=== PATIENT | female | born 1990 | race Caucasian/White ===

== ENCOUNTER 2020-12-29 07:20 | Outpatient (CLI) | payer OTHER ==
[2020-12-29 22:14] LABS: SARS-CoV-2 PCR by NAA Not Detected (NotDetected)
== END 2020-12-29 07:21 | disposition home or self-care (01) ==
LOC: LABBT 07:20
PROVIDERS: ATTEND Obstetrics & Gynecology
DX: Z01.812 Encounter for preprocedural laboratory examination (principal); Z20.822 Contact with and (suspected) exposure to COVID-19
CPT/HCPCS: 87635; U0003; U0005

== ENCOUNTER 2021-01-01 10:15 | Inpatient (IN) | payer OTHER ==
[2021-01-01] MEDS ORDERED: Bicitra 30 ML UDCUP PO PRN (10:49)
[2021-01-01] MEDS ORDERED: CEFAZOLIN 2 GM in Premix Bag 1 BAG IVPB SCH (10:49)
[2021-01-01] MEDS ORDERED: Famotidine/PF 20 mg/2ml Vial SLOW IVP PRN (10:49)
[2021-01-01] MEDS ORDERED: Promethazine HCl 25 MG/ML VIAL IM PRN ×2 (10:49→13:41)
[2021-01-01] MEDS ORDERED: Ondansetron PF 4 MG/2 ML Vial IVP PRN ×2 (10:49→13:41)
[2021-01-01] MEDS ORDERED: hydrALAZINE 20 MG/ML VIAL SLOW IVP PRN ×2 (10:49→15:24)
[2021-01-01 10:51] VITALS: BMI 38.7
[2021-01-01] MEDS: Lactated Ringer's 1,000 ML IV SCH ×3 (11:07→22:28)
[2021-01-01 11:30] LABS: Hemoglobin 11.8 g/dL (12.0-16.0); Mean Corpuscular HGB CONC 33.3 g/dL (32.0-36.0); Mean Corpuscular Hemoglobin 30.9 pg (27.0-31.0); Mean Corpuscular Volume 92.7 fL (78.0-98.0); Mean Platelet Volume 8.3 fL (7.4-10.4); Platelet Count 249 thou/uL (130-400); RBC Distribution Width 12.7 % (11.5-14.5); Red Blood Cell (RBC) Count 3.81 mill/uL (4.20-5.40); White Blood Cell (WBC) Count 10.7 thou/uL (4.8-10.8)
[2021-01-01] MEDS ORDERED: Ketorolac Tromethamine 30 MG/ML VIAL ONE (11:49)
[2021-01-01] MEDS ORDERED: Dexamethasone 4 mg/ml Vial ONE (11:49)
[2021-01-01] MEDS ORDERED: Morphine PF 10 MG/10 ML VIAL ONE (11:49)
[2021-01-01] MEDS ORDERED: Oxytocin 10 UNITS/ML VIAL ONE (11:49)
[2021-01-01] MEDS ORDERED: Ondansetron PF 4 MG/2 ML Vial ONE (11:49)
[2021-01-01] MEDS ORDERED: Phenylephrine 40 MG/NS 250 ML 250 ML ONE (11:49)
[2021-01-01 12:00] LABS: Syphilis Antibody Nonreactive (Nonreactive); Syphilis Antibody Index 0.05 S/CO (<1.00 Non-Reactive)
[2021-01-01 12:01] LABS: HBSAg Index 0.17 S/CO (0-0.99); Hep B Surf Ag Non-Reactive S/CO (NonReactive)
--- NOTE | 2021-01-01 12:04 | PDOC.LDHP ---
Labor and Delivery H&P Chief complaint: scheduled section HPI: Here for scheduled RCS, previous 1CS for suspected macrosomia. Current gestational age (weeks): 39 Due date: 01/06/21 Dating criteria: last menstrual period, first trimester ultrasound Grav: 39 Para: 2 OB History Details: 1 Current complications: none Abnormal US findings: No Current medications: pre-kristine vitamins Previous surgical history: low tranverse CS Allergies/Adverse Reactions: Allergies Allergy/AdvReac Type Severity Reaction Status Date / Time No Known Allergies Allergy Unverified 01/01/21 10:51 Social history: none - Physical Exam Vital signs reviewed and normal: yes General: resting Lungs: CTAB Abdomen: gravid Extremeties: no edema FHT: category 1 - OB Labs Blood type: A RH: positive Antibody Screen: negative HIV: negative RPR: negative HEPSAg: negative 1 hour GCT: negative GBS: negative Urine drug screen: negative Rubella: immune - Assessment L&D Assessment: scheduled repeat section - Plan Plan: admit to L&D, informed consent obtained, anesthesia consult for pain management -: TO OR FOR SCHEDULED RCS.
[2021-01-01] MEDS ORDERED: PHENYLEPHRINE-NS 100 MCG/ML 10 ML SYRINGE ONE (12:53)
--- NOTE | 2021-01-01 13:28 | PDOC.OPDEL ---
OB Operative/Delivery Note Delivery Dr/Surgeon: Jay Assist: Justice Pre-Delivery Diagnosis: scheduled section (RCS) Procedure/Post Delivery Dx: repeat low transverse CS Weeks gestation: 39 Anesthesia: spinal - Findings A Sex: female - Additional Findings/Plan Placenta delivered: spontaneous findings: low transverse hysterotomy without extension Estimated blood loss: 500ml Compilations/Other Findings: persistent breech in female until 38 weeks Post delivery plan: routine recovery
[2021-01-01] MEDS ORDERED: NS w/ Oxytocin 30 units 500 ML ONE (13:38)
[2021-01-01] MEDS ORDERED: diphenhydrAMINE 50 MG/ML VIAL IVP PRN (13:41)
[2021-01-01] MEDS ORDERED: Naloxone HCl 0.4 mg/ml Vial IV PRN (13:41)
[2021-01-01] MEDS ORDERED: Meperidine HCl/PF 25 MG/ML VIAL SLOW IVP PRN (13:41)
[2021-01-01] MEDS ORDERED: Promethazine HCl 25 MG SUPP PR PRN (13:41)
[2021-01-01] MEDS ORDERED: Ketorolac Tromethamine 30 MG/ML VIAL IVP PRN (13:41)
[2021-01-01] MEDS ORDERED: HYDROmorphone 2 MG/ML VIAL SLOW IVP PRN (13:41)
[2021-01-01] MEDS ORDERED: Naloxone HCl 0.4 mg/ml Vial IVP PRN ×2 (13:41)
[2021-01-01] MEDS ORDERED: Ondansetron HCl/PF 4 MG/2 ML Vial IVP PRN (13:41)
[2021-01-01] MEDS ORDERED: L&D-Morphine 4 MG/ML VIAL SLOW IVP PRN (13:41)
[2021-01-01] MEDS ORDERED: Communication Order-Pharmacy FS SCH (13:45)
[2021-01-01] MEDS ORDERED: NS w/ Oxytocin 30 units 500 ML IVPB SCH (14:15)
[2021-01-01] MEDS ORDERED: diphenhydrAMINE 25 MG CAP PO PRN (15:24)
[2021-01-01] MEDS ORDERED: NS / Oxytocin 40 units/1000ml 1,000 ML IV SCH (15:24)
[2021-01-01] MEDS ORDERED: Simethicone Chewable 80 MG TAB PO PRN (15:24)
[2021-01-01] MEDS ORDERED: Adacel (T-DAP) 0.5 ML SYRINGE IM ONE (15:24)
[2021-01-01] MEDS ORDERED: Bisacodyl 10 MG SUPP PR PRN (15:24)
[2021-01-01] MEDS ORDERED: Acetaminophen 325 MG TAB PO PRN (15:24)
[2021-01-01] MEDS ORDERED: Lanolin Ointment 7 GM TUBE TOP PRN (15:24)
[2021-01-01] MEDS ORDERED: Ketorolac Tromethamine 30 MG/ML VIAL IVP SCH (19:45)
--- NOTE | 2021-01-01 20:44 | OP ---
DATE OF PROCEDURE: 01/01/2021 PREOPERATIVE DIAGNOSES: 1. Desires repeat section. 2. A 39 weeks. CIS COORDINATOR: Love Rendon MD, Trimmer Sawyer. ANESTHESIA: Spinal per Dr. Plasencia. COMPLICATIONS: None. POSTOPERATIVE DIAGNOSES: 1. Desires repeat section. 2. A 39 weeks. PROCEDURE PERFORMED: Repeat low-transverse section. ESTIMATED BLOOD LOSS: 500 mL. QUANTITATIVE BLOOD LOSS: Pending at the time of dictation. OPERATIVE FINDINGS: 1. Low-transverse hysterotomy without extension. 2. Thin lower uterine segment. 3. Vigorous female , Apgars and weight pending at the time of dictation, delivered from vertex presentation; however, known to be in persistent breech until 38 weeks. 4. Normal-appearing uterus, tubes, and ovaries bilaterally. 5. Fundus firm after delivery of placenta. 6. Surgical site hemostatic. PROCEDURE IN DETAIL: The patient was taken back to the OR with IV fluids running. Once she was in the OR, spinal anesthesia was obtained. The patient placed in dorsal supine position with left lateral tilt. Curtis catheter was used, was placed using sterile technique and the abdomen was prepped and draped in normal fashion for section. Time-out was performed. 2 g of Ancef was infused prior to the start of the procedure. Anesthesia was tested after the patient was draped and found to be adequate. A Pfannenstiel skin incision was made with a scalpel. Skin incision was carried down through subcutaneous tissue to the fascia. Once the fascia was reached, it was incised in the midline and extended superolaterally using curved Ren scissors. Yadira clamps were placed at the superior border of the fascia, which was dissected off the rectus abdominis muscles. In similar fashion, Yadira clamps were placed at the inferior border of the fascia, which was dissected down towards the level of pubic symphysis. The rectus muscles were in the midline. The rectus muscles and peritoneum were stretched and the Mario O retractor was placed in the peritoneal cavity for retraction, visualization, and protection of the wound. Very thin uterine segment was noted. A scalp was used to dissect the bladder reflection and directed away from the planned hysterotomy site. Low-transverse hysterotomy was made with a scalpel. Clear fluid was noted. The hysterotomy was stretched using a Ingram maneuver. The was delivered through the incision from vertex presentation without difficulty. Nose and mouth were suctioned. The cord was doubly clamped and cut. The was handed off to special care nurse. Cord blood was collected. The placenta was delivered. The uterus was exteriorized, massaged firm, and cleared of clot and debris. Uterus returned to the abdominal cavity. Hysterotomy was inspected with no extension noted. The hysterotomy was then closed in a running locked fashion using Monocryl suture. Second layer closure was used with Monocryl imbricating the hysterotomy incision. After the hysterotomy was closed in 2 layers, it was copiously irrigated and dry. It was inspected with no areas of bleeding noted. The uterine fundus was noted to be firm. The Mario O retractor was removed from the abdominal cavity. The rectus fascia and paracolic gutters were irrigated and suctioned dry. The rectus fascia and muscles were inspected and no areas of bleeding were noted. The rectus fascia was reapproximated from corner to corner and tied together using PDS suture. After the fascia was reapproximated, subcutaneous tissue was irrigated and dried. Any small areas of bleeding were controlled with cauterization. Plain gut suture was used to reapproximate the subcutaneous tissue. Skin was closed with 4-0 Monocryl and dressed with Dermabond. The procedure was uncomplicated. The counts were correct. Job ID: [id number]
[2021-01-01] MEDS: Docusate Calcium (SURFAK) 240 MG CAP PO SCH (22:23)
[2021-01-01] MEDS: Ferrous Sulfate 325 MG TAB PO SCH (22:30)
[2021-01-02] MEDS ORDERED: HYDROcodone/Acetaminophen 5/325 mg Tablet PO PRN ×2 (01:45)
[2021-01-02 05:19] LABS: Hemoglobin 10.2 g/dL (12.0-16.0); Mean Corpuscular HGB CONC 33.8 g/dL (32.0-36.0); Mean Corpuscular Hemoglobin 31.6 pg (27.0-31.0); Mean Corpuscular Volume 93.5 fL (78.0-98.0); Mean Platelet Volume 8.2 fL (7.4-10.4); Platelet Count 201 thou/uL (130-400); RBC Distribution Width 12.7 % (11.5-14.5); Red Blood Cell (RBC) Count 3.23 mill/uL (4.20-5.40); White Blood Cell (WBC) Count 12.1 thou/uL (4.8-10.8)
[2021-01-02] MEDS: Ibuprofen 800 MG TAB PO SCH ×2 (05:43→12:47)
[2021-01-02] MEDS ORDERED: Prenatal Vitamin 1 TAB PO SCH (09:00)
[2021-01-02] MEDS: Ferrous Sulfate 325 MG TAB PO SCH (10:02)
[2021-01-02] MEDS: Docusate Calcium (SURFAK) 240 MG CAP PO SCH (10:02)
[2021-01-02 13:01] VITALS: BP 153/82; TEMP 97.9
--- NOTE | 2021-01-02 13:38 | PDOC.PP ---
Post Progress Note Post Day #: 1 Subjective: doing well, tolerating regular diet, minimal pain PO intake tolerated: yes Flatus: yes Ambulation: yes Vital Signs (12 hours) Temp Pulse Resp BP Pulse Ox 01/02/21 12:00 97.9 F 82 18 153/82 H 01/02/21 08:00 97.8 F 93 16 131/90 100 01/02/21 05:40 98.3 F 90 18 116/65 Weight Weight 212 lb - Physical Examination General: NAD Respiratory: non-labored breathing Abdominal: no distention Skin: CS incision dry & intact Psychiatric: A&Ox3, normal affect Result Diagrams: 01/02/21 04:55 Additional Labs: Post Labs Hep Bs Antigen Non-Reactive S/CO (NonReactive) 01/01/21 11:13 Blood Type A POSITIVE 01/01/21 11:53 (1) Status post repeat low transverse section Code(s): Z98.891 - HISTORY OF UTERINE SCAR FROM PREVIOUS SURGERY Status: Acute (2) 39 weeks gestation of Code(s): Z3A.39 - 39 WEEKS GESTATION OF Status: Acute - Assessment/Plan POD1 doing well, minimal pain, tolerating diet and voiding. Will FU, if normal VS and pain well controlled, possible DC home this evening if baby DC.
[2021-01-03] MEDS ORDERED: Ibuprofen 800 MG TAB PO SCH (06:00)
== END 2021-01-02 16:30 | disposition home or self-care (01) | DRG 788 ==
LOC: L&D-LIB 10:15 → 3SW 15:45
PROVIDERS: ADMIT Obstetrics & Gynecology; ATTEND Obstetrics & Gynecology
PROC: 10D00Z1 Extraction of Products of Conception, Low, Open Approach (ICD-10-PCS; principal; 2021-01-01)
DX: O34.211 Maternal care for low transverse scar from previous cesarean delivery (principal); Z3A.39 39 weeks gestation of pregnancy; Z37.0 Single live birth; Z20.822 Contact with and (suspected) exposure to COVID-19
CPT/HCPCS: 36415; 51702; 85027; 86780; 86850; 86900; 86901; 87340; J0690; J1100; J1200; J1885; J2270; J2405; J2590; Q0163; S0028